=== PATIENT | male | born 1945 | race Caucasian/White ===

== ENCOUNTER 2025-04-20 09:31 | Emergency (ER) | payer OTHER, SELFPAY ==
--- NOTE | 2025-04-20 09:58 | PC.NURSE ---
not in mwr @1000
== END 2025-04-20 10:53 | disposition left against medical advice (07) ==
PROVIDERS: Emergency Provider Emergency Medicine; PCP Internal Medicine
DX: R10.9 Unspecified abdominal pain (principal); Z53.21 Procedure and treatment not carried out due to patient leaving prior to being seen by health care provider